=== PATIENT | male | born 1935 | race Caucasian/White ===

== ENCOUNTER 2017-10-02 15:52 | Observation (INO) ==
[2017-10-02] MEDS ORDERED: Ipratropium/Albuterol Neb 3 ML IH ONE ×2 (16:02→18:05)
[2017-10-02] MEDS ORDERED: Albuterol 2.5 MG/3 ML NEBULIZER IH ONE (16:02)
[2017-10-02] MEDS ORDERED: methylPREDNISolone 125 MG/2 ML VIAL IVP ONE (16:02)
--- NOTE | 2017-10-02 16:07 | Emergency Department Note ---
Disposition Clinical Impression: COPD exacerbation Pneumonia Qualifiers: Pneumonia type: due to unspecified organism Laterality: left Lung location: lower lobe of lung Qualified Code(s): J18.1 - Lobar pneumonia, unspecified organism Disposition: Admitted As Inpatient Condition: Good Referrals: Kings Moran MD [Primary Care Provider] - Forms: ED Satisfaction Letter Time of Disposition: 17:54 SOB HPI - General Chief Complaint: ED Shortness of Breath/Dyspnea Stated Complaint: SOB Time Seen by Provider: 10/02/17 16:00 Source: patient Mode of arrival: ambulatory Limitations: no limitations Nursing Notes Reviewed: Yes Vital Signs Reviewed: Yes - History of Present Illness 81-year-old white male has been sick with cough and congestion for approximately 2 weeks. He was seen by his primary care physician approximately 10 days ago. He was put on a Z-Mayur and steroids. He states he has continued to get worse instead of better. He has had fever for at least 3 days, he does not know how high it spin. He has had chills. His cough is productive purulent sputum. He has been wheezing and short of breath with exertion and rest. He normally wears 1/2 L of oxygen at home. He has a history of COPD. He denies chest pain. Pt Subjective Complaint: shortness of breath, cough Onset (ago): week(s) Context: recent illness (2) Severity: moderate Consistency/Duration: constant Improves with: oxygen, rest Worsens with: exertion, coughing Known history of: COPD Associated symptoms: Reports: fever Treatment prior to arrival: oxygen, bronchodilator, other (Steroids and azithromycin) Cough present: Yes Cough Description: Involuntary Cough Frequency: Intermittent Sputum production: Yes Sputum Amount: Moderate Sputum Color: Yellow - Related Data Home oxygen amount: other (1.5) Home Medications Medication Instructions Recorded Confirmed Furosemide [Lasix] 20 mg PO DAILY 05/19/15 10/02/17 GuaiFENesin ER [Mucinex] 600 mg PO BID PRN 05/19/15 10/02/17 Simvastatin [Zocor] 40 mg PO QPM 05/19/15 10/02/17 Albuterol Sulfate [Proair Hfa] 2 puff IH PRN PRN 09/29/16 10/02/17 Nitroglycerin [Nitrostat] 0.4 mg SL PRN PRN 09/29/16 10/02/17 Aspirin [Lo-Dose Aspirin EC] 81 mg PO DAILY 02/28/17 10/02/17 Esomeprazole Magnesium [Nexium] 40 mg PO DAILY 02/28/17 10/02/17 Fluticasone/Salmeterol [Advair 1 puff IH BID 02/28/17 10/02/17 500-50 Diskus] Rivaroxaban [Xarelto] 20 mg PO DAILY 02/28/17 10/02/17 Enalapril Maleate [Vasotec] 40 mg PO DAILY 05/22/17 10/02/17 Previous Rx's Medication Instructions Recorded Acetaminophen w/Cod 300-30 mg 1 each PO Q6HR #12 tablet 05/22/17 [Tylenol w/Codeine #3] Allergies Allergy/AdvReac Type Severity Reaction Status Date / Time naproxen Allergy Swelling Verified 02/28/17 18:53 of Lip/Tongue/Throat aclidinium AdvReac Dizziness Verified 02/28/17 18:53 [From Tudorza Pressair] amlodipine AdvReac Nausea Verified 02/28/17 18:53 fluoxetine AdvReac Hallucinati Verified 02/28/17 18:53 ng lorazepam [From Ativan] AdvReac Nausea Verified 02/28/17 18:53 All systems ED: reviewed and negative except as stated. Constitutional: Reports: fever, chills Eyes: Denies: eye discharge ENT ED: Denies: ear pain, throat pain Cardiovascular: Denies: chest pain Respiratory: Reports: cough, dyspnea, wheezes, sputum production Gastrointestinal: Denies: abdominal pain, nausea, vomiting, diarrhea Genitourinary: Denies: urgency, dysuria, frequency Neurological: Reports: headache. Denies: weakness, paresthesias Past Medical History - Past Medical History Medical history: Reports: atrial fibrillation, COPD, hypertension, myocardial infarction Surgical history: Reports: coronary bypass (CABG), other Psychiatric history: Reports: anxiety - Social History Smoking Status: Former smoker Smokeless Tobacco Status: No Alcohol use: Reports: none Drug use: Reports: none Physical Exam - General Limitations: no limitations General appearance: alert, in distress (Mildly dyspneic) - Head Head exam: atraumatic, normocephalic - Eye Eye exam: Present: PERRL, EOMI. Absent: scleral icterus, conjunctival injection - ENT ENT exam: normal oropharynx, mucous membranes moist, TM's normal bilaterally - Neck Neck exam: Present: normal inspection, full ROM, trachea midline. Absent: lymphadenopathy - Chest Chest inspection: Present: normal inspection, symmetric chest wall rise - Respiratory Respiratory exam: Present: respiratory distress (Mildly dyspneic), wheezes ( Moderate bilateral expiratory), prolonged expiratory phase. Absent: accessory muscle use - Cardiovascular Cardiovascular exam: Present: normal rhythm, tachycardia (108). Absent: systolic murmur, diastolic murmur, gallop - Abdominal Exam Abdominal exam: Present: soft, Non-Tender, other (Obese) - Extremities Exam Extremities exam: Present: normal inspection, full ROM, normal capillary refill. Absent: pedal edema, calf tenderness - Neurological Exam Neurological exam: Present: alert, oriented X3. Absent: motor sensory deficit - Psychiatric Psychiatric exam: Present: normal affect, normal mood - Skin Skin exam: Present: warm, dry, intact, normal color. Absent: cyanosis, diaphoresis Course - Reevaluation(s) Reevaluation #1: Clear pneumonia. Clinically is doing well here. He responded well to the nebulizers and Solu-Medrol. IV Rocephin and azithromycin were initiated. His lactic acid is not elevated. I discussed case with the hospitalist, Dr. Smith. He will admit to an observation bed. Time: 17:53 Vital Signs Temperature 101.5 F H 10/02/17 15:54 Pulse Rate 89 10/02/17 15:54 Respiratory Rate 26 10/02/17 15:54 Blood Pressure 142/76 10/02/17 15:54 O2 Sat by Pulse Oximetry 97 10/02/17 15:54 Temperature 100.1 F H 10/02/17 17:27 Pulse Rate 85 10/02/17 17:27 Respiratory Rate 18 10/02/17 17:27 Blood Pressure 124/60 10/02/17 17:27 O2 Sat by Pulse Oximetry 98 10/02/17 17:27 Oxygen Delivery Oxygen Delivery Nasal Cannula Shortness of Breath/Dyspnea - Differential Diagnosis Likely: acute exacerbation of chronic obstructive airways disease, congestive heart failure, pneumonia, pneumothorax, arrhythmia - Lab Data Lab results reviewed: Yes I reviewed the patient's lab results. Result diagrams: 10/02/17 16:00 10/02/17 16:00 Lab Results 10/02/17 10/02/17 10/02/17 Range/Units 16:00 16:00 16:00 WBC 12.6 H (4.3-11.1) K/mcL RBC 4.05 L (4.19-5.50) M/mcL Hgb 11.3 L (12.9-16.9) g/dL Hct 34.7 L (37.5-50.1) % MCV 85.7 (83.0-100.0) fL MCH 27.9 L (28.0-33.3) pg MCHC 32.6 (31.6-35.5) g/dL RDW 14.2 (11.5-14.5) % Plt Count 136 L (140-400) K/mcL MPV 13.4 H (9.4-12.4) fL Immature Gran % 0.6 (0-4) % Seg Neutrophils % 74.9 % Lymphocytes % 16.5 % Monocytes % 7.3 % Eosinophils % 0.5 % Basophils % 0.2 % Neutrophils # 9.4 H (1.6-8.9) K/mcL Lymphocytes # 2.1 (0.6-4.6) K/mcL Monocytes # 0.9 (0.0-1.3) K/mcL Eosinophils # 0.1 (0.0-0.6) K/mcL Basophils # 0.0 (0.0-0.2) K/mcL Sodium 139 (136-145) mEq/L Potassium 3.8 (3.5-4.5) mEq/L Chloride 105 (98-109) mEq/L Carbon Dioxide 25 (19-29) mEq/L BUN 27 H (8-26) mg/dL Creatinine 1.34 H (0.72-1.25) mg/dL Est GFR ( Amer) > 60 (> 60) Est GFR (Non-Af Amer) 51 L (> 60) BUN/Creatinine Ratio 20 (6-26) Glucose 125 H (70-99) mg/dL Calculated Osmolality 295 (280-300) Lactic Acid 1.0 (0.5-2.2) mmol/L Calcium 8.9 (8.6-10.8) mg/dL Total Bilirubin 0.9 (0.2-1.2) mg/dL AST 11 (5-34) Units/L ALT 14 (0-55) Units/L Alkaline Phosphatase 78 (38-126) Units/L Troponin I (0-0.03) ng/mL B-Natriuretic Peptide (0-100) pg/mL Serum Total Protein 6.3 (6.0-8.3) g/dL Albumin 3.2 L (3.5-5.0) g/dL Globulin 3.1 (2.4-3.5) g/dL Albumin/Globulin Ratio 1.0 L (1.1-2.2) 10/02/17 10/02/17 Range/Units 16:00 16:00 WBC (4.3-11.1) K/mcL RBC (4.19-5.50) M/mcL Hgb (12.9-16.9) g/dL Hct (37.5-50.1) % MCV (83.0-100.0) fL MCH (28.0-33.3) pg MCHC (31.6-35.5) g/dL RDW (11.5-14.5) % Plt Count (140-400) K/mcL MPV (9.4-12.4) fL Immature Gran % (0-4) % Seg Neutrophils % % Lymphocytes % % Monocytes % % Eosinophils % % Basophils % % Neutrophils # (1.6-8.9) K/mcL Lymphocytes # (0.6-4.6) K/mcL Monocytes # (0.0-1.3) K/mcL Eosinophils # (0.0-0.6) K/mcL Basophils # (0.0-0.2) K/mcL Sodium (136-145) mEq/L Potassium (3.5-4.5) mEq/L Chloride (98-109) mEq/L Carbon Dioxide (19-29) mEq/L BUN (8-26) mg/dL Creatinine (0.72-1.25) mg/dL Est GFR ( Amer) (> 60) Est GFR (Non-Af Amer) (> 60) BUN/Creatinine Ratio (6-26) Glucose (70-99) mg/dL Calculated Osmolality (280-300) Lactic Acid (0.5-2.2) mmol/L Calcium (8.6-10.8) mg/dL Total Bilirubin (0.2-1.2) mg/dL AST (5-34) Units/L ALT (0-55) Units/L Alkaline Phosphatase (38-126) Units/L Troponin I 0.02 (0-0.03) ng/mL B-Natriuretic Peptide 56 (0-100) pg/mL Serum Total Protein (6.0-8.3) g/dL Albumin (3.5-5.0) g/dL Globulin (2.4-3.5) g/dL Albumin/Globulin Ratio (1.1-2.2) - Radiology Data Radiology results reviewed: Yes I reviewed the patient's radiology results. Impressions Chest X-Ray 10/02/17 16:02 IMPRESSION: Interval development of left basilar airspace disease which could represent atelectasis or pneumonia. Mild vascular congestion. D/ / Luis Enrique Gonzalez MD / Luis Enrique Gonzalez MD Interpreting Provider: Luis Enrique Gonzalez MD - EKG Data EKG attestation: Yes I reviewed and interpreted this EKG. EKG results narrative: Junctional rhythm, rate of 87, nonspecific ST-T changes. Rhythm strip shows a junctional rhythm with a rate of 87, [place] interval 137 ms, QRS 98 ms with no other ectopy is interpreted by me. This is compared to a tracing dated 09/29/16 , not significantly change other than the short [place] interval and/or junctional rhythm. ST-T wave changes are unchanged.
[2017-10-02 16:22] LABS: Basophils % 0.2 %; Eosinophils # 0.1 K/mcL (0.0-0.6); Eosinophils % 0.5 %; Hematocrit 34.7 % (37.5-50.1); Hemoglobin 11.3 g/dL (12.9-16.9); Immature Granulocytes % 0.6 % (0-4); Lymphocytes # 2.1 K/mcL (0.6-4.6); Lymphocytes % 16.5 %; Mean Corpuscular HGB Conc 32.6 g/dL (31.6-35.5); Mean Corpuscular Hemoglobin 27.9 pg (28.0-33.3); Mean Corpuscular Volume 85.7 fL (83.0-100.0); Mean Platelet Volume 13.4 fL (9.4-12.4); Monocytes # 0.9 K/mcL (0.0-1.3); Monocytes % 7.3 %; Platelet Count 136 K/mcL (140-400); Red Blood Count 4.05 M/mcL (4.19-5.50); Red Cell Distribution Width 14.2 % (11.5-14.5); Segmented Neutrophils % 74.9 %
[2017-10-02 16:23] LABS: Neutrophils # 9.4 K/mcL (1.6-8.9)
[2017-10-02 16:41] LABS: Alanine Aminotransferase 14 Units/L (0-55); Albumin 3.2 g/dL (3.5-5.0); Alkaline Phosphatase 78 Units/L (38-126); Aspartate Amino Transferase 11 Units/L (5-34); BUN/Creatinine Ratio 20 (6-26); Bilirubin,Total 0.9 mg/dL (0.2-1.2); Blood Urea Nitrogen 27 mg/dL (8-26); Calcium 8.9 mg/dL (8.6-10.8); Carbon Dioxide 25 mEq/L (19-29); Chloride 105 mEq/L (98-109); Globulin 3.1 g/dL (2.4-3.5); Glucose 125 mg/dL (70-99); Osmolality,Calculated 295 (280-300); Potassium 3.8 mEq/L (3.5-4.5); Sodium 139 mEq/L (136-145); Total Protein 6.3 g/dL (6.0-8.3); eGFR For African Americans > 60 (> 60); eGFR For Non-African Americans 51 (> 60)
[2017-10-02] MEDS ORDERED: Azithromycin 500 MG in D5% in Water 250 ML IVPB ONE (16:58)
[2017-10-02] MEDS ORDERED: Acetaminophen 325 MG TABLET PO PRN (18:05)
[2017-10-02] MEDS ORDERED: Naloxone 0.4 MG/ML INJ IVP PRN (18:05)
[2017-10-02] MEDS ORDERED: Nitroglycerin 0.4 MG TAB.SUBL SL PRN ×2 (18:05→18:59)
[2017-10-02] MEDS ORDERED: *HR* Acetaminophen w/Cod 300-30 mg 1 TAB TABLET PO SCH (18:05)
[2017-10-02] MEDS: methylPREDNISolone 125 MG/2 ML VIAL IVP SCH (19:03)
[2017-10-02] MEDS ORDERED: *HR* Acetaminophen w/Cod 300-30 mg 1 TAB TABLET PO PRN (19:27)
[2017-10-02] MEDS: Budesonide/Formoterol 160/4.5 MDI IH SCH (21:27)
[2017-10-03] MEDS: methylPREDNISolone 125 MG/2 ML VIAL IVP SCH ×2 (02:34→09:14)
[2017-10-03] MEDS: Budesonide/Formoterol 160/4.5 MDI IH SCH ×2 (08:50→20:58)
[2017-10-03] MEDS ORDERED: Lisinopril 20 MG TABLET PO SCH (09:00)
[2017-10-03] MEDS: Furosemide 20 MG TABLET PO SCH (09:16)
[2017-10-03] MEDS: *HR* Rivaroxaban 10 MG TABLET PO SCH (09:16)
[2017-10-03] MEDS: Aspirin Enteric Coated 81 MG Tablet PO SCH (09:16)
--- NOTE | 2017-10-03 12:07 | Internal Med History&Physical ---
Date of Encounter: 10/03/17 Time of Encounter: 11:35 Assessment and Plan (1) Community acquired pneumonia Current visit: No Status: Acute He has been started on Rocephin and Zithromax. We will continue these and add lactobacillus. Recheck labs in a.m. Qualifiers: Laterality: left Lung location: lower lobe of lung Qualified Code(s): J18.1 - Lobar pneumonia, unspecified organism (2) Restrictive lung disease Current visit: Yes Status: Acute Continue oxygen 24/7 for hypoxemia. (3) Anemia Current visit: Yes Status: Acute We will order anemia testing in a.m. Qualifiers: Anemia type: unspecified type Qualified Code(s): D64.9 - Anemia, unspecified (4) Hypertension Current visit: No Status: Chronic Continue enalapril/lisinopril and monitor blood pressure. Qualifiers: Hypertension type: essential hypertension Qualified Code(s): I10 - Essential (primary) hypertension Internal Medicine - H&P: HPI Chief complaint: Dyspnea and cough Admitted From: Emergency Dept Plans for Post Hospital Care: Home History of present illness: Mr. Chavez is a 81 year old male who came to emergency room complaining of increased dyspnea with cough productive of yellow and green sputum onset approximately 10 days previously. He had seen his PCP Dr. Moran and received a Z-Mayur and steroids. He did not feel improved after completing the prescription. He was evaluated in emergency room and found to have evidence of left lower lobe pneumonia on chest x-ray. He was admitted to [facility] floor for ongoing care needs. He was hospitalized at [facility] September 2016 with possible left lower lobe pneumonia. His respiratory history is significant for having smoked from age 16- 46 up to 1 pack per day. He had PFTs 10/20/2015 which showed FVC 59% predicted , FEV1/FVC 66%, MVV 45%, and DLCO corrected 72% . There was minimal change postbronchodilator. The RV was elevated at 142% predicted. He has hypoxemia and wears oxygen 24/7. Past Med Surg Social Fam HX - Past Medical History Medical history: atrial fibrillation, COPD, hypertension, myocardial infarction Psychiatric history: anxiety - Past Surgical History Surgical History: coronary bypass (CABG), other - Social History Smoking Status: Former smoker Smokeless Tobacco Status: No Alcohol use: none Drug use: none - Family History Father Adopted: No Hx Family Cardiac Disorders: Yes (heart attack) Internal Medicine - H&P: Meds Furosemide [Lasix] 20 mg PO DAILY 05/19/15 [History] GuaiFENesin ER [Mucinex] 600 mg PO BID PRN 05/19/15 [History] Simvastatin [Zocor] 40 mg PO QPM 05/19/15 [History] Albuterol Sulfate [Proair Hfa] 2 puff IH PRN PRN 09/29/16 [History] Nitroglycerin [Nitrostat] 0.4 mg SL PRN PRN 09/29/16 [History] Aspirin [Lo-Dose Aspirin EC] 81 mg PO DAILY 02/28/17 [History] Esomeprazole Magnesium [Nexium] 40 mg PO DAILY 02/28/17 [History] Fluticasone/Salmeterol [Advair 500-50 Diskus] 1 puff IH BID 02/28/17 [History] Rivaroxaban [Xarelto] 20 mg PO DAILY 02/28/17 [History] Acetaminophen w/Cod 300-30 mg [Tylenol w/Codeine #3] 1 each PO Q6HR #12 tablet 05/22/17 [Rx] Enalapril Maleate [Vasotec] 40 mg PO DAILY 05/22/17 [History] 3 Allergy/AdvReac Type Severity Reaction Status Date / Time naproxen Allergy Swelling Verified 02/28/17 18:53 of Lip/Tongue/Throat aclidinium AdvReac Dizziness Verified 02/28/17 18:53 [From Tudorza Pressair] amlodipine AdvReac Nausea Verified 02/28/17 18:53 fluoxetine AdvReac Hallucinati Verified 02/28/17 18:53 ng lorazepam [From Ativan] AdvReac Nausea Verified 02/28/17 18:53 All Systems PM: A 10-system review of systems was performed and is negative for pertinent findings except as documented above in the HPI. Review of systems: Review of systems from his September 2016 [facility] hospitalization were reviewed and revised as below. General: His weight has increased from 95.254 kg at the May 2015 hospitalization to 113.398 kg on admission now Cardiovascular: He has hypertension and known ASHD status post 3 vessel CABG September 2006 in [place]. He had a heart cath approximately December 2008 at [place] with results unremarkable. He thinks he had another stress test approximately 2011 without further intervention recommended. He does not have known heart failure, DVT, or pulmonary embolus. An echocardiogram 09/25/2015 showed LVEF 60%, E/A ratio of 0.6, and no significant valvular abnormality. The interventricular septum and posterior wall thickness measurements were elevated at 1.10 cm each. 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 Respiratory: As per history of present illness GI: He denies trouble with his liver gallbladder or exocrine pancreas. He does have GERD. : no history of hematuria, dysuria, kidney stones, or BPH. He denies chronic kidney disease Neurologic: No history of large distribution strokes or seizures. Endocrine: He has no known diabetes or thyroid disease but does have hyperlipidemia. Hematology/oncology: No history of internal malignancies or blood disorders. He has had anemia in the past but that has resolved. Psychiatric: He has depression but no significant anxiety or other mental health issues. [place] skeletal: he has DJD but no known gout or osteoporosis. - Constitutional Vitals: Temp Pulse Resp BP Pulse Ox 97.3 F L 76 16 157/76 95 10/03/17 06:32 10/03/17 06:32 10/03/17 08:51 10/03/17 06:32 10/03/17 08:51 Exam: Gen.: He is a well-developed overweight male sitting on the side of bed who appears in mild respiratory distress HEENT: Head is atraumatic and normocephalic. Eyes: EOMI. There is no scleral icterus. Mouth: Mucosa is moist. Neck: Supple and nontender. There is no thyromegaly or adenopathy noted. Heart: Regular without murmurs gallops or ectopics Lungs: He has diminished breath sounds diffusely. No crackles or wheezing are heard Back: He has mild discomfort over percussing the right lower lateral flank Abdomen: He has a midline ventral hernia on Valsalva. No masses or guarding are noted. Abdomen is soft and nontender. Extremities: There is no cyanosis edema or clubbing noted. Dorsalis pedis and posttibial pulses are 1-2 over 2 bilaterally. Neurologic: Mental status: He is talkative and a good historian. Cranial nerves : Smile is symmetric. Forehead wrinkles bilaterally. Tongue protrudes midline. EOMI. Motor: There is no pronator drift. Cerebellar: Finger to nose is intact bilaterally. Skin: Warm and dry Internal Med - H&P Results - Labs CBC & Chem 7: 10/02/17 16:00 10/02/17 16:00 - VTE Reasons for not Prescribing Prophylaxis: Not indicated-Anticoagulated or INR therapeutic
--- NOTE | 2017-10-03 16:28 | Electrocardiograph Report ---
[place] [id number] Test Date: 2017-10-02 Pat Name: Nitin Chavez Department: [id number] Room: [facility] Gender: M Vp Customer Service: [id number] 1935 Requested By: Demetrius Carroll Order Number: [id number] Reading MD: Petey Kline DO Measurements Intervals [place] Rate: 87 P: -64 MO: 137 QRS: 38 QRSD: 98 T: 35 QT: 335 QTc: 380 Interpretive Statements SINUS RHYTHM NONSPECIFIC ST & T-WAVE ABNORMALITY Electronically Signed On 10-03-2017 16:27:21 EST by Petey Kline DO
[2017-10-03] MEDS ORDERED: Azithromycin 500 MG in D5% in Water 250 ML IVPB SCH ×2 (17:00→18:00)
[2017-10-03] MEDS: Lactobacillus 1 EACH CAP.SPRINK PO SCH (20:50)
[2017-10-04 06:02] LABS: Basophils % 0.1 %; Hematocrit 32.4 % (37.5-50.1); Hemoglobin 10.5 g/dL (12.9-16.9); Immature Granulocytes % 0.8 % (0-4); Lymphocytes # 1.7 K/mcL (0.6-4.6); Lymphocytes % 9.5 %; Mean Corpuscular HGB Conc 32.4 g/dL (31.6-35.5); Mean Corpuscular Hemoglobin 27.4 pg (28.0-33.3); Mean Corpuscular Volume 84.6 fL (83.0-100.0); Mean Platelet Volume 14.4 fL (9.4-12.4); Monocytes # 0.7 K/mcL (0.0-1.3); Monocytes % 3.8 %; Platelet Count 143 K/mcL (140-400); Red Blood Count 3.83 M/mcL (4.19-5.50); Red Cell Distribution Width 13.9 % (11.5-14.5); Segmented Neutrophils % 85.8 %
[2017-10-04 06:07] LABS: Neutrophils # 15.3 K/mcL (1.6-8.9)
[2017-10-04 06:20] LABS: BUN/Creatinine Ratio 30 (6-26); Blood Urea Nitrogen 35 mg/dL (8-26); Carbon Dioxide 24 mEq/L (19-29); Chloride 107 mEq/L (98-109); Glucose 155 mg/dL (70-99); Osmolality,Calculated 297 (280-300); Potassium 4.4 mEq/L (3.5-4.5); Sodium 138 mEq/L (136-145); eGFR For African Americans > 60 (> 60); eGFR For Non-African Americans > 60 (> 60)
[2017-10-04] MEDS: Lactobacillus 1 EACH CAP.SPRINK PO SCH (09:02)
[2017-10-04] MEDS: Aspirin Enteric Coated 81 MG Tablet PO SCH (09:02)
[2017-10-04] MEDS: *HR* Rivaroxaban 10 MG TABLET PO SCH (09:02)
[2017-10-04] MEDS: Furosemide 20 MG TABLET PO SCH (09:02)
[2017-10-04] MEDS: Budesonide/Formoterol 160/4.5 MDI IH SCH (09:34)
[2017-10-04 09:41] LABS: % Iron Saturation 13 % (20-55); Ferritin 67 ng/ml (20-250); Iron 33 mcg/dL (65-175); Transferrin 183 mg/dL (203-362)
[2017-10-04 09:58] VITALS: BP 134/72
--- NOTE | 2017-10-04 10:01 | Discharge Summary ---
Date of Encounter: 10/04/17 Time of Encounter: 09:50 - Discharge Diagnosis (1) Community acquired pneumonia Priority: Primary Status: Acute Qualifiers: Laterality: left Lung location: lower lobe of lung Qualified Code(s): J18.1 - Lobar pneumonia, unspecified organism (2) Restrictive lung disease Priority: Secondary Status: Acute (3) Anemia Priority: Secondary Status: Acute Qualifiers: Anemia type: unspecified type Qualified Code(s): D64.9 - Anemia, unspecified (4) Hypertension Priority: Secondary Status: Chronic Qualifiers: Hypertension type: essential hypertension Qualified Code(s): I10 - Essential (primary) hypertension - Discharge Medications Prescriptions: Cefuroxime PO [Ceftin] 500 mg PO Q12HR #8 tablet Ascorbic Acid [Vitamin C] 500 mg PO DAILY #30 tablet Azithromycin [Zithromax] 250 mg PO DAILY #4 tablet Ferrous Sulfate 325 mg PO DAILY #30 tablet Lactobacillus [Culturelle] 1 each PO BID #8 cap.sprink Home Medications: GuaiFENesin ER [Mucinex] 600 mg PO BID PRN 05/19/15 [History] Simvastatin [Zocor] 40 mg PO QPM 05/19/15 [History] Albuterol Sulfate [Proair Hfa] 2 puff IH PRN PRN 09/29/16 [History] Nitroglycerin [Nitrostat] 0.4 mg SL PRN PRN 09/29/16 [History] Aspirin [Lo-Dose Aspirin EC] 81 mg PO DAILY 02/28/17 [History] Esomeprazole Magnesium [Nexium] 40 mg PO DAILY 02/28/17 [History] Fluticasone/Salmeterol [Advair 500-50 Diskus] 1 puff IH BID 02/28/17 [History] Rivaroxaban [Xarelto] 20 mg PO DAILY 02/28/17 [History] Acetaminophen w/Cod 300-30 mg [Tylenol w/Codeine #3] 1 each PO Q6HR #12 tablet 05/22/17 [Rx] Enalapril Maleate [Vasotec] 40 mg PO DAILY 05/22/17 [History] Ascorbic Acid [Vitamin C] 500 mg PO DAILY #30 tablet 10/04/17 [Rx] Azithromycin [Zithromax] 250 mg PO DAILY #4 tablet 10/04/17 [Rx] Cefuroxime PO [Ceftin] 500 mg PO Q12HR #8 tablet 10/04/17 [Rx] Ferrous Sulfate 325 mg PO DAILY #30 tablet 10/04/17 [Rx] Furosemide [Lasix] 20 mg PO Q48H tablet 10/04/17 [Rx] Lactobacillus [Culturelle] 1 each PO BID #8 cap.sprink 10/04/17 [Rx] Allergies/Adverse Reactions: 3 Allergy/AdvReac Type Severity Reaction Status Date / Time naproxen Allergy Swelling Verified 02/28/17 18:53 of Lip/Tongue/Throat aclidinium AdvReac Dizziness Verified 02/28/17 18:53 [From Tudorza Pressair] amlodipine AdvReac Nausea Verified 02/28/17 18:53 fluoxetine AdvReac Hallucinati Verified 02/28/17 18:53 ng lorazepam [From Ativan] AdvReac Nausea Verified 02/28/17 18:53 Date of admission: 10/02/17 18:03 Primary care physician: Kings Moran MD - Patient Status Disposition: Home, Self-Care Condition: Good Functional capacity at discharge: uses cane/walker Overall status at discharge: patient is progressing back to baseline - Discharge Instructions Follow Up With: Kings Moran MD [Primary Care Provider] - 1 week - Diet and Activity Activity: resume usual activities as tolerated, wear oxygen at all times Diet: advance to your usual diet Hospital course: Mr. Chavez is a 81 year old male who came to emergency room complaining of increased dyspnea with cough productive of yellow and green sputum onset approximately 10 days previously. He had seen his PCP Dr. Moran and received a Z-Mayur and steroids. He did not feel improved after completing the prescription. He was evaluated in emergency room and found to have evidence of left lower lobe pneumonia on chest x-ray. He was admitted to [facility] floor for ongoing care needs. Initial orders were written by the emergency room physician. I saw him on October 03 and performed the history and physical. He was started on Rocephin and Zithromax through emergency room. These were continued and I added lactobacillus. He had good clinical response and remained afebrile the last 24 hours of hospitalization. WBC jennifer to 17.8 but I felt this was possibly due in part to IV Solu-Medrol which was given initially. His PCP can monitor his labs as needed. He will continue with antibiotic and probiotic for 4 additional days after discharge. Anemia testing showed iron 33, transferrin saturation 13%, transferrin 183, and ferritin 67. B12 and folate levels are pending time of discharge. I will start him on ferrous sulfate with vitamin C. His PCP can monitor his response and review the pending B12 and folate levels when they are available. His creatinine decreased to 1.16 with administration of IV fluids. I will decrease his Lasix to 20 mg every other day. On October 04 he felt stable for discharge home. He will follow with his PCP Dr. Kings Moran within 1 week. Will continue oxygen 08/05 as at home. - Time Spent with Patient Total time spent providing and/or coordinating discharge services: - Constitutional Vitals: Temp Pulse Resp BP Pulse Ox 97.3 F L 80 18 156/72 95 10/04/17 05:24 10/04/17 05:24 10/04/17 05:24 10/04/17 05:24 10/04/17 05:24 - VTE Reasons for not Prescribing Prophylaxis: Not indicated-Anticoagulated or INR therapeutic
[2017-10-04 10:05] LABS: Folate 13.2 ng/mL (3.0-16.0)
== END 2017-10-04 11:01 | disposition home or self-care (01) ==
LOC: EMEROOPIK 15:52 → INPPIK 15:52
PROVIDERS: ADMIT Emergency Medicine; ATTEND Internal Medicine

== ENCOUNTER 2017-11-05 15:29 | Observation (INO) ==
--- NOTE | 2017-11-05 16:07 | Emergency Department Note ---
Disposition Clinical Impression: Facial cellulitis Disposition: Admitted As Inpatient Condition: Good Time of Disposition: 18:50 ([facility]) Neck Injury/Pain HPI - General Chief Complaint: ED Neck Pain/Injury Stated Complaint: pain in neck from cellulitis Time Seen by Provider: 11/05/17 15:35 Source: patient Mode of arrival: ambulatory Limitations: no limitations Nursing Notes Reviewed: Yes Vital Signs Reviewed: Yes - History of Present Illness HPI Narrative: Patient seen Monday was diagnosed with cellulitis of the face but there was no redness justice submandibular swelling or brings him in today stating that his whole left side of his face is swollen he is having no difficulty swallowing or difficulty breathing but states his face swollen denies any blurred vision double vision loss vision he notices up underneath his maxillary sinus region up around his ear and down into the neck denies any chest pain chest pressure palpitations he has normal shortness of breath secondary to COPD he denies any abdominal pain or discomfort denies diarrhea melena hematochezia or numbness tingling or weakness Pt Subjective Complaint: neck pain Onset (ago): day(s) Place: home Radiation: left lateral, head Pain Severity: moderate Pain Scale: 3 Quality: aching Duration: constant, gradually worsening Improves with: none Worsens with: movement of neck Context: unknown Associated symptoms: Reports: fever, swollen glands. Denies: headache, numbness , tingling, weakness, vertigo, difficulty walking, difficulty swallowing, nausea , vomiting Treatments prior to arrival: other (prescription ab's) - Related Data Home Medications Medication Instructions Recorded Confirmed GuaiFENesin ER [Mucinex] 600 mg PO BID PRN 05/19/15 11/05/17 Simvastatin [Zocor] 40 mg PO QPM 05/19/15 11/05/17 Albuterol Sulfate [Proair Hfa] 2 puff IH PRN PRN 09/29/16 11/05/17 Nitroglycerin [Nitrostat] 0.4 mg SL PRN PRN 09/29/16 11/05/17 Aspirin [Lo-Dose Aspirin EC] 81 mg PO DAILY 02/28/17 11/05/17 Esomeprazole Magnesium [Nexium] 40 mg PO DAILY 02/28/17 11/05/17 Fluticasone/Salmeterol [Advair 1 puff IH BID 02/28/17 11/05/17 500-50 Diskus] Rivaroxaban [Xarelto] 20 mg PO DAILY 02/28/17 11/05/17 Enalapril Maleate [Vasotec] 40 mg PO DAILY 05/22/17 11/05/17 Acetaminophen [Tylenol] 500 mg PO Q6HR 11/05/17 11/05/17 Previous Rx's Medication Instructions Recorded Ascorbic Acid [Vitamin C] 500 mg PO DAILY #30 tablet 10/04/17 Cefuroxime PO [Ceftin] 500 mg PO Q12HR #8 tablet 10/04/17 Ferrous Sulfate 325 mg PO DAILY #30 tablet 10/04/17 Furosemide [Lasix] 20 mg PO Q48H tablet 10/04/17 Lactobacillus [Culturelle] 1 each PO BID #8 cap.sprink 10/04/17 Clindamycin HCl [Cleocin HCl] 300 mg PO TID #21 capsule 11/03/17 Allergies Allergy/AdvReac Type Severity Reaction Status Date / Time naproxen Allergy Swelling Verified 11/03/17 19:20 of Lip/Tongue/Throat aclidinium AdvReac Dizziness Verified 11/03/17 19:20 [From Tudorza Pressair] amlodipine AdvReac Nausea Verified 11/03/17 19:20 fluoxetine AdvReac Hallucinati Verified 11/03/17 19:20 ng lorazepam [From Ativan] AdvReac Nausea Verified 11/03/17 19:20 All systems ED: reviewed and negative except as stated. Review of Systems: As Per HPI Constitutional: Reports: fever, weakness. Denies: chills Eyes: Denies: eye pain, eye discharge, vision change ENT ED: Reports: other (facial swelling). Denies: ear pain, throat pain, congestion, dysphagia Cardiovascular: Denies: chest pain Respiratory: Denies: cough, dyspnea Gastrointestinal: Denies: abdominal pain, nausea, vomiting Genitourinary: Denies: urgency, dysuria, frequency Musculoskeletal: Denies: back pain, neck pain Integumentary: Denies: rash, abrasion, lesions Neurological: Denies: headache, weakness Psychiatric: Denies: anxiety Endocrine: Denies: fatigue Hematological/Lymphatic: Denies: easy bleeding Allergic/Immunologic: Denies: facial swelling Past Medical History - Past Medical History Attestation: Yes The following information was validated with the patient. Source: patient, old records reviewed, nursing notes reviewed Medical history: Reports: non-contributory Surgical history: Reports: coronary bypass (CABG), other Psychiatric history: Reports: anxiety - Social History Smoking Status: Former smoker Smokeless Tobacco Status: No Alcohol use: Reports: none Drug use: Reports: none Physical Exam - General Limitations: no limitations General appearance: alert, in no apparent distress - Head Head exam: normocephalic, normal inspection - Expanded Head Exam 1 - trace swelling - Eye Eye exam: Present: normal appearance, PERRL, EOMI - ENT ENT exam: normal exam, normal oropharynx, mucous membranes moist, TM's normal bilaterally, normal external ear exam - Neck Neck exam: Present: normal inspection, full ROM, trachea midline, tenderness, lymphadenopathy (left submandibuar only) - Chest Chest inspection: Present: normal inspection, symmetric chest wall rise - Respiratory Respiratory exam: Present: normal lung sounds bilaterally, wheezes - Cardiovascular Cardiovascular exam: Present: regular rate, normal rhythm, normal heart sounds - Abdominal Exam Abdominal exam: Present: soft, Non-Tender, normal bowel sounds - Extremities Exam Extremities exam: Present: normal inspection, full ROM, normal capillary refill. Absent: tenderness, pedal edema, joint swelling, calf tenderness - Expanded Lower Extremity Exam Gait: observed and normal - Back Exam Back exam: Present: normal inspection, full ROM. Absent: muscle spasm - Neurological Exam Neurological exam: Present: alert, oriented X3, CN II-XII intact - Psychiatric Psychiatric exam: Present: normal affect, normal mood - Skin Skin exam: Present: warm, dry, intact, normal color Course Course Narrative: 81-year-old male who presents to emergency room is having some left-sided jaw pain swelling patient was seen and evaluated CT scan was done as well as of the neck and face region he was given IV vancomycin clindamycin admitted to [facility] for additional IV antibiotics due to the fact it is involving the face and neck region if improved will discharge tomorrow admitted to the services of Dr. Smith family in agreement Vital Signs Temperature 97.9 F 11/05/17 15:31 Pulse Rate 82 11/05/17 15:31 Respiratory Rate 44 11/05/17 15:31 Blood Pressure 164/73 11/05/17 15:31 O2 Sat by Pulse Oximetry 95 11/05/17 15:31 Temperature 97.9 F 11/05/17 15:31 Pulse Rate 65 11/05/17 18:14 Respiratory Rate 18 11/05/17 18:14 Blood Pressure 127/73 11/05/17 18:14 O2 Sat by Pulse Oximetry 96 11/05/17 18:14 Oxygen Delivery Oxygen Delivery Room Air Neck Pain - MDM Narrative Medical decision making narrative: facial l swelling - Medical Records Medical records reviewed: Yes I reviewed the patient's medical records. - Lab Data Lab results reviewed: Yes I reviewed the patient's lab results. Result diagrams: 11/05/17 16:27 11/05/17 16:27 Lab Results 11/05/17 11/05/17 11/05/17 Range/Units 16:27 16:27 16:27 WBC 7.9 (4.3-11.1) K/mcL RBC 3.39 L (4.19-5.50) M/mcL Hgb 9.2 L (12.9-16.9) g/dL Hct 28.7 L (37.5-50.1) % MCV 84.7 (83.0-100.0) fL MCH 27.1 L (28.0-33.3) pg MCHC 32.1 (31.6-35.5) g/dL RDW 14.9 H (11.5-14.5) % Plt Count 148 (140-400) K/mcL MPV 13.6 H (9.4-12.4) fL Immature Gran % 0.4 (0-4) % Seg Neutrophils % 72.1 % Lymphocytes % 18.9 % Monocytes % 7.5 % Eosinophils % 0.8 % Basophils % 0.3 % Neutrophils # 5.7 (1.6-8.9) K/mcL Lymphocytes # 1.5 (0.6-4.6) K/mcL Monocytes # 0.6 (0.0-1.3) K/mcL Eosinophils # 0.1 (0.0-0.6) K/mcL Basophils # 0.0 (0.0-0.2) K/mcL PT (9.4-12.1) Seconds INR APTT 40.8 H (26.0-36.0) Seconds Sodium 137 (136-145) mEq/L Potassium 4.2 (3.5-5.1) mEq/L Chloride 105 (98-107) mEq/L Carbon Dioxide 28 (23-29) mEq/L BUN 19 (8-23) mg/dL Creatinine 1.04 (0.70-1.30) mg/dL Est GFR ( Amer) > 60 (> 60) Est GFR (Non-Af Amer) > 60 (> 60) BUN/Creatinine Ratio 18 (6-26) Glucose 108 H (70-105) mg/dL Calculated Osmolality 287 (280-300) Calcium 8.8 (8.6-10.3) mg/dL 11/05/17 Range/Units 16:27 WBC (4.3-11.1) K/mcL RBC (4.19-5.50) M/mcL Hgb (12.9-16.9) g/dL Hct (37.5-50.1) % MCV (83.0-100.0) fL MCH (28.0-33.3) pg MCHC (31.6-35.5) g/dL RDW (11.5-14.5) % Plt Count (140-400) K/mcL MPV (9.4-12.4) fL Immature Gran % (0-4) % Seg Neutrophils % % Lymphocytes % % Monocytes % % Eosinophils % % Basophils % % Neutrophils # (1.6-8.9) K/mcL Lymphocytes # (0.6-4.6) K/mcL Monocytes # (0.0-1.3) K/mcL Eosinophils # (0.0-0.6) K/mcL Basophils # (0.0-0.2) K/mcL PT 25.7 H (9.4-12.1) Seconds INR 2.3 APTT (26.0-36.0) Seconds Sodium (136-145) mEq/L Potassium (3.5-5.1) mEq/L Chloride (98-107) mEq/L Carbon Dioxide (23-29) mEq/L BUN (8-23) mg/dL Creatinine (0.70-1.30) mg/dL Est GFR ( Amer) (> 60) Est GFR (Non-Af Amer) (> 60) BUN/Creatinine Ratio (6-26) Glucose (70-105) mg/dL Calculated Osmolality (280-300) Calcium (8.6-10.3) mg/dL - Radiology Data Radiology results reviewed: Yes I reviewed the patient's radiology results. ITS Impressions Face CT 11/05/17 16:07 IMPRESSION: 1. Mild left inferior face and left submandibular soft tissue induration may represent mild cellulitis. 2. Remainder of the soft tissues of the neck are unremarkable. D/ / 11/05/2017 18:12:51 Cleve Tenorio MD / elaine Interpreting Provider: Cleve Tenorio MD Soft Tissue Neck CT 11/05/17 16:07 IMPRESSION: 1. Mild left inferior face and left submandibular soft tissue induration may represent mild cellulitis. 2. Remainder of the soft tissues of the neck are unremarkable. D/ / 11/05/2017 18:12:51 Cleve Tenorio MD / elaine Interpreting Provider: Cleve Tenorio MD Critical Care Time Critical Care Time: No
[2017-11-05 16:35] LABS: Basophils % 0.3 %; Eosinophils # 0.1 K/mcL (0.0-0.6); Eosinophils % 0.8 %; Hematocrit 28.7 % (37.5-50.1); Hemoglobin 9.2 g/dL (12.9-16.9); Immature Granulocytes % 0.4 % (0-4); Lymphocytes # 1.5 K/mcL (0.6-4.6); Lymphocytes % 18.9 %; Mean Corpuscular HGB Conc 32.1 g/dL (31.6-35.5); Mean Corpuscular Hemoglobin 27.1 pg (28.0-33.3); Mean Corpuscular Volume 84.7 fL (83.0-100.0); Mean Platelet Volume 13.6 fL (9.4-12.4); Monocytes # 0.6 K/mcL (0.0-1.3); Monocytes % 7.5 %; Neutrophils # 5.7 K/mcL (1.6-8.9); Platelet Count 148 K/mcL (140-400); Red Blood Count 3.39 M/mcL (4.19-5.50); Red Cell Distribution Width 14.9 % (11.5-14.5); Segmented Neutrophils % 72.1 %
[2017-11-05 16:41] LABS: INR 2.3; Prothrombin Time 25.7 Seconds (9.4-12.1)
[2017-11-05 16:48] LABS: BUN/Creatinine Ratio 18 (6-26); Blood Urea Nitrogen 19 mg/dL (8-23); Calcium 8.8 mg/dL (8.6-10.3); Carbon Dioxide 28 mEq/L (23-29); Chloride 105 mEq/L (98-107); Glucose 108 mg/dL (70-105); Osmolality,Calculated 287 (280-300); Potassium 4.2 mEq/L (3.5-5.1); Sodium 137 mEq/L (136-145); eGFR For African Americans > 60 (> 60); eGFR For Non-African Americans > 60 (> 60)
[2017-11-05] MEDS ORDERED: Clindamycin 600 MG/50 ML 600 MG/50 ML IV.SOLN IVPB STA (18:39)
[2017-11-05] MEDS ORDERED: cefTRIAXone 1,000 MG in Water for inj. (sterile) 10 ML IVP STA (18:39)
[2017-11-05] MEDS ORDERED: Nitroglycerin 0.4 MG TAB.SUBL SL PRN (20:08)
[2017-11-05] MEDS ORDERED: Ibuprofen 400 MG TABLET PO PRN (20:08)
[2017-11-05] MEDS ORDERED: Dextrose Gel 15 GM PO PRN ×2 (20:08)
[2017-11-05] MEDS ORDERED: Naloxone 0.4 MG/ML INJ IVP PRN (20:08)
[2017-11-05] MEDS ORDERED: D5% in Water 1,000 ML IVC PRN (20:08)
[2017-11-05] MEDS ORDERED: Furosemide 20 MG TABLET PO SCH (20:08)
[2017-11-05] MEDS ORDERED: *HR* Dextrose 50 % in Water (Syg) 50 ML SYRINGE IVP PRN (20:08)
[2017-11-05] MEDS: Budesonide/Formoterol 160/4.5 MDI IH SCH (21:36)
[2017-11-06 05:59] LABS: INR 1.5; Prothrombin Time 16.5 Seconds (9.4-12.1)
[2017-11-06 06:02] LABS: Activated Partial Thrombo Time 32.4 Seconds (26.0-36.0)
[2017-11-06 06:10] LABS: Basophils % 0.4 %; Eosinophils # 0.1 K/mcL (0.0-0.6); Hematocrit 27.6 % (37.5-50.1); Hemoglobin 8.9 g/dL (12.9-16.9); Immature Granulocytes % 0.5 % (0-4); Lymphocytes # 1.3 K/mcL (0.6-4.6); Mean Corpuscular HGB Conc 32.2 g/dL (31.6-35.5); Mean Corpuscular Hemoglobin 27.5 pg (28.0-33.3); Mean Corpuscular Volume 85.2 fL (83.0-100.0); Monocytes # 0.5 K/mcL (0.0-1.3); Monocytes % 7.3 %; Neutrophils # 5.3 K/mcL (1.6-8.9); Platelet Count 142 K/mcL (140-400); Red Blood Count 3.24 M/mcL (4.19-5.50); Red Cell Distribution Width 14.8 % (11.5-14.5); Segmented Neutrophils % 72.8 %
[2017-11-06 06:20] LABS: BUN/Creatinine Ratio 17 (6-26); Blood Urea Nitrogen 17 mg/dL (8-23); Calcium 8.4 mg/dL (8.6-10.3); Carbon Dioxide 27 mEq/L (23-29); Chloride 106 mEq/L (98-107); Glucose 107 mg/dL (70-105); Osmolality,Calculated 286 (280-300); Sodium 137 mEq/L (136-145); eGFR For African Americans > 60 (> 60); eGFR For Non-African Americans > 60 (> 60)
[2017-11-06] MEDS: Insulin LISPRO 300 UNITS/3 ML VIAL SQ SCH ×2 (08:44→12:09)
[2017-11-06] MEDS ORDERED: Ascorbic Acid 500 MG TABLET PO SCH (09:00)
[2017-11-06] MEDS ORDERED: Lisinopril 20 MG TABLET PO SCH (09:00)
[2017-11-06] MEDS ORDERED: Aspirin Enteric Coated 81 MG Tablet PO SCH (09:00)
[2017-11-06] MEDS: Budesonide/Formoterol 160/4.5 MDI IH SCH (09:57)
[2017-11-06 10:05] VITALS: BP 115/61
--- NOTE | 2017-11-06 12:22 | Internal Med History&Physical ---
Date of Encounter: 11/06/17 Time of Encounter: 11:50 Assessment and Plan (1) Facial cellulitis Current visit: Yes Status: Acute He received IV clindamycin and Rocephin in the emergency room. (2) Anemia Current visit: No Status: Acute Workup 10/04/2017 showed findings consistent with iron deficiency and B12 deficiency. Results were pending at time of his September 2017 discharge. He is uncertain what treatment he has received for these from his PCP. Qualifiers: Anemia type: unspecified type Qualified Code(s): D64.9 - Anemia, unspecified Internal Medicine - H&P: HPI Chief complaint: Facial cellulitis Admitted From: Emergency Dept Plans for Post Hospital Care: Home History of present illness: Mr. Chavez is a 81 year old male who came to emergency room stating he was not improved after receiving prescription for clindamycin 11/03/2017 at [place] urgent [facility] for facial cellulitis. He was evaluated in emergency room with facial CT showing mild left inferior face and submandibular soft tissue induration possibly representing mild cellulitis. He was admitted to [facility] floor for ongoing care needs. He states he feels significantly improved at present time and wishes to be discharged home. Past Med Surg Social Fam HX - Past Medical History Medical history: non-contributory Psychiatric history: anxiety - Past Surgical History Surgical History: coronary bypass (CABG), other - Social History Smoking Status: Former smoker Smokeless Tobacco Status: No Alcohol use: none Drug use: none - Family History Father Adopted: No Living Status: Hx Family Cardiac Disorders: Yes (heart attack) Internal Medicine - H&P: Meds GuaiFENesin ER [Mucinex] 600 mg PO BID PRN 05/19/15 [History] Simvastatin [Zocor] 40 mg PO QPM 05/19/15 [History] Albuterol Sulfate [Proair Hfa] 2 puff IH PRN PRN 09/29/16 [History] Nitroglycerin [Nitrostat] 0.4 mg SL PRN PRN 09/29/16 [History] Aspirin [Lo-Dose Aspirin EC] 81 mg PO DAILY 02/28/17 [History] Esomeprazole Magnesium [Nexium] 40 mg PO DAILY 02/28/17 [History] Fluticasone/Salmeterol [Advair 500-50 Diskus] 1 puff IH BID 02/28/17 [History] Rivaroxaban [Xarelto] 20 mg PO DAILY 02/28/17 [History] Enalapril Maleate [Vasotec] 40 mg PO DAILY 05/22/17 [History] Ascorbic Acid [Vitamin C] 500 mg PO DAILY #30 tablet 10/04/17 [Rx] Cefuroxime PO [Ceftin] 500 mg PO Q12HR #8 tablet 10/04/17 [Rx] Ferrous Sulfate 325 mg PO DAILY #30 tablet 10/04/17 [Rx] Furosemide [Lasix] 20 mg PO Q48H tablet 10/04/17 [Rx] Lactobacillus [Culturelle] 1 each PO BID #8 cap.sprink 10/04/17 [Rx] Clindamycin HCl [Cleocin HCl] 300 mg PO TID #21 capsule 11/03/17 [Rx] Acetaminophen [Tylenol] 500 mg PO Q6HR 11/05/17 [History] 3 Allergy/AdvReac Type Severity Reaction Status Date / Time naproxen Allergy Swelling Verified 11/03/17 19:20 of Lip/Tongue/Throat aclidinium AdvReac Dizziness Verified 11/03/17 19:20 [From Tudorza Pressair] amlodipine AdvReac Nausea Verified 11/03/17 19:20 fluoxetine AdvReac Hallucinati Verified 11/03/17 19:20 ng lorazepam [From Ativan] AdvReac Nausea Verified 11/03/17 19:20 All Systems PM: A 10-system review of systems was performed and is negative for pertinent findings except as documented above in the HPI. Review of systems: Review of systems from his September 2017 [facility] hospitalization were reviewed and revised as below. 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 He had a heart cath approximately December 2008 at [place] with results unremarkable. He thinks he had another stress test approximately 2011 without further intervention recommended. He does not have known heart failure, DVT, or pulmonary embolus. An echocardiogram 09/25/2015 showed LVEF 60%, E/A ratio of 0.6, and no significant valvular abnormality. The interventricular septum and posterior wall thickness measurements were elevated at 1.10 cm each. 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 Respiratory: He smoked from age [age] up to 1 pack per day. He had PFTs 2015 which showed FVC 59% predicted, FEV1/FVC 66%, MVV 45%, and DLCO corrected 72%. There was minimal change postbronchodilator. The RV was elevated at 142% predicted. He has hypoxemia and wears oxygen 24/7. GI: He denies trouble with his liver gallbladder or exocrine pancreas. He does have GERD. : no history of hematuria, dysuria, kidney stones, or BPH. He denies chronic kidney disease Neurologic: No history of large distribution strokes or seizures. Endocrine: He has no known diabetes or thyroid disease but does have hyperlipidemia. Hematology/oncology: No history of internal malignancies or blood disorders. Anemia testing 10/04/2017 showed iron 33, transferrin saturation 13%, transferrin 183, ferritin 67, B12 157, and folate 13.2. Psychiatric: He has depression but no significant anxiety or other mental health issues. [place] skeletal: he has DJD but no known gout or osteoporosis. - Constitutional Vitals: Temp Pulse Resp BP Pulse Ox 98.1 F 67 18 115/61 98 11/06/17 10:03 11/06/17 10:03 11/06/17 10:03 11/06/17 10:03 11/06/17 10:03 Exam: Gen.: He is a well-developed well-nourished male sitting in chair at bedside appears in no acute distress HEENT: Head is atraumatic. There is slight asymmetry with the left face and submandibular area minimally larger than the right. Eyes: EOMI. There is no scleral icterus. Mouth: Mucosa is moist. Neck: Supple and nontender. There is no thyromegaly. There is a left submandibular nodule (?) that possibly represents enlarged lymph node but detailed evaluation is difficult because of patient's body habitus. Heart: Regular without murmurs gallops or ectopics Lungs: No wheezes or crackles are heard. Abdomen: Soft and nontender. Exam is limited because he is in the seated position. Extremities: He has trace to 1+ edema bilaterally. Dorsalis pedis and posterior tibial pulses are trace palpable. His feet are warm to touch. He has minimal DJD changes of his hands. Neurologic: Mental status: He is talkative and a good historian. Cranial nerves : Smile is symmetric. Forehead wrinkles bilaterally. Tongue protrudes midline. EOMI. Motor: There is no pronator drift. Cerebellar: Finger to nose is intact bilaterally. Skin: Warm and dry Internal Med - H&P Results - Labs CBC & Chem 7: 11/06/17 04:40 11/06/17 04:40 Labs: Short CBC 11/06/17 Range/Units 04:40 WBC 7.3 (4.3-11.1) K/mcL Hgb 8.9 L (12.9-16.9) g/dL Hct 27.6 L (37.5-50.1) % Plt Count 142 (140-400) K/mcL Neutrophils # 5.3 (1.6-8.9) K/mcL BMP 11/06/17 04:40 Sodium 137 Potassium 4.0 Chloride 106 Carbon Dioxide 27 BUN 17 Creatinine 1.01 Glucose 107 H Calcium 8.4 L
--- NOTE | 2017-11-06 12:35 | Discharge Summary ---
Date of Encounter: 11/06/17 Time of Encounter: 11:50 - Discharge Diagnosis (1) Facial cellulitis Priority: Primary Status: Acute (2) Anemia Priority: Secondary Status: Acute Qualifiers: Anemia type: unspecified type Qualified Code(s): D64.9 - Anemia, unspecified - Discharge Medications Prescriptions: Amoxicillin/Clavulanate [Augmentin] 875 mg PO BIDWM #8 tablet Lactobacillus [Culturelle] 1 each PO BID #8 cap.sprink Home Medications: GuaiFENesin ER [Mucinex] 600 mg PO BID PRN 05/19/15 [History] Simvastatin [Zocor] 40 mg PO QPM 05/19/15 [History] Albuterol Sulfate [Proair Hfa] 2 puff IH PRN PRN 09/29/16 [History] Nitroglycerin [Nitrostat] 0.4 mg SL PRN PRN 09/29/16 [History] Aspirin [Lo-Dose Aspirin EC] 81 mg PO DAILY 02/28/17 [History] Esomeprazole Magnesium [Nexium] 40 mg PO DAILY 02/28/17 [History] Fluticasone/Salmeterol [Advair 500-50 Diskus] 1 puff IH BID 02/28/17 [History] Rivaroxaban [Xarelto] 20 mg PO DAILY 02/28/17 [History] Enalapril Maleate [Vasotec] 40 mg PO DAILY 05/22/17 [History] Ascorbic Acid [Vitamin C] 500 mg PO DAILY #30 tablet 10/04/17 [Rx] Ferrous Sulfate 325 mg PO DAILY #30 tablet 10/04/17 [Rx] Furosemide [Lasix] 20 mg PO Q48H tablet 10/04/17 [Rx] Acetaminophen [Tylenol] 500 mg PO Q6HR 11/05/17 [History] Amoxicillin/Clavulanate [Augmentin] 875 mg PO BIDWM #8 tablet 11/06/17 [Rx] Lactobacillus [Culturelle] 1 each PO BID #8 cap.sprink 11/06/17 [Rx] Allergies/Adverse Reactions: 3 Allergy/AdvReac Type Severity Reaction Status Date / Time naproxen Allergy Swelling Verified 11/03/17 19:20 of Lip/Tongue/Throat aclidinium AdvReac Dizziness Verified 11/03/17 19:20 [From Tudorza Pressair] amlodipine AdvReac Nausea Verified 11/03/17 19:20 fluoxetine AdvReac Hallucinati Verified 11/03/17 19:20 ng lorazepam [From Ativan] AdvReac Nausea Verified 11/03/17 19:20 Date of admission: 11/05/17 19:01 Primary care physician: Kings Moran MD - Patient Status Disposition: Home, Self-Care Condition: Good Functional capacity at discharge: uses cane/walker Overall status at discharge: patient is progressing back to baseline - Discharge Instructions Follow Up With: Kings Moran MD [Primary Care Provider] - - Diet and Activity Activity: resume usual activities as tolerated Diet: advance to your usual diet Hospital course: Mr. Chavez is a 81 year old male who came to emergency room stating he was not improved after receiving prescription for clindamycin 11/03/2017 at [facility] for facial cellulitis. He was evaluated in emergency room with facial CT showing mild left inferior face and submandibular soft tissue induration possibly representing mild cellulitis. He was admitted to [facility] for ongoing care needs. Initial orders were written by the emergency room physician. I saw him on November 04 and performed the history physical and discharge. He received IV clindamycin and Rocephin in the emergency room. By the time I saw him he stated he felt near his baseline and wished to be discharged home. I felt this was reasonable. He will be given Augmentin 875 mg twice a day with lactobacillus for 4 days at discharge. He will follow with his PCP Dr. Kings Moran within 1 week. He can discuss with Dr. Moran treatment for his anemia if this has not been done. - Time Spent with Patient Total time spent providing and/or coordinating discharge services: - Constitutional Vitals: Temp Pulse Resp BP Pulse Ox 98.1 F 67 18 115/61 98 11/06/17 10:03 11/06/17 10:03 11/06/17 10:03 11/06/17 10:03 11/06/17 10:03
[2017-11-06] MEDS ORDERED: *HR* Rivaroxaban 10 MG TABLET PO SCH (17:00)
== END 2017-11-06 13:09 | disposition home or self-care (01) ==
LOC: EMEROOPIK 15:29 → INPPIK 15:29
PROVIDERS: ADMIT Internal Medicine; ATTEND Internal Medicine

== ENCOUNTER 2019-02-18 13:01 | Observation (INO) ==
--- NOTE | 2019-02-18 13:10 | Emergency Department Note ---
Disposition Clinical Impression: Lightheadedness, Sinusitis, Pneumonia Disposition: Admitted As Inpatient Condition: Good Referrals: Kings Moran MD [Primary Care Provider] - Forms: ED Satisfaction Letter Time of Disposition: 14:44 Dizziness HPI - General Chief Complaint: ED Dizziness Stated Complaint: Dizziness Time Seen by Provider: 02/18/19 13:10 Source: patient, family Mode of arrival: ambulatory Limitations: no limitations Nursing Notes Reviewed: Yes Vital Signs Reviewed: Yes - History of Present Illness HPI Narrative: 83-year-old male presents today with lightheadedness and feeling "dizzy" for the last 3 or 4 days. Family is concerned he might have an ear infection but he was your doctor last week. He has had ongoing problems with lightheadedness in the past but is never been told he had vertigo. No fevers no chills. He does competitive headache. No chest pain no shortness of breath no abdominal pain. Patient states that he does not think he drinks enough water. Family is concerned because he stopped taking his water pills recently and stop taking his potassium and they were concerned this may be affecting him. Pt Subjective Complaint: dizziness - Related Data Home Medications Medication Instructions Recorded Confirmed GuaiFENesin ER [Mucinex] 600 mg PO BID PRN 05/19/15 12/26/18 Albuterol Sulfate [Proair Hfa] 2 puff IH Q4H PRN 09/29/16 12/26/18 Nitroglycerin [Nitrostat] 0.4 mg SL Q5M PRN 09/29/16 12/26/18 Aspirin [Lo-Dose Aspirin EC] 81 mg PO 02/28/17 12/31/17 Fluticasone/Salmeterol [Advair 1 puff IH BID 02/28/17 12/26/18 500-50 Diskus] Enalapril Maleate [Vasotec] 40 mg PO DAILY 05/22/17 12/26/18 Albuterol Neb [Proventil Neb] 2.5 mg IH Q4H PRN 01/10/18 12/26/18 Bumetanide [Bumex] 1 mg PO Q48H 01/10/18 12/26/18 Simvastatin [Zocor] 20 mg PO HS 01/10/18 12/26/18 Omeprazole [PriLOSEC] 40 mg PO DAILY 12/26/18 12/26/18 Potassium Chloride 10 meq PO BID 12/26/18 12/26/18 Umeclidinium [place] [Incruse 62.5 mcg IH DAILY 12/26/18 12/26/18 Ellipta] Previous Rx's Medication Instructions Recorded Sennosides/Docusate Sodium [Senna 1 each PO DAILY PRN tablet 12/06/17 Plus] Metoprolol [Lopressor] 12.5 mg PO BID #30 tablet 01/18/18 Allergies Allergy/AdvReac Type Severity Reaction Status Date / Time naproxen Allergy Swelling Verified 10/15/18 14:50 of Lip/Tongue/Throat aclidinium AdvReac Dizziness Verified 10/15/18 14:50 [From Tudorza Pressair] amlodipine AdvReac Nausea Verified 10/15/18 14:50 fluoxetine AdvReac Hallucinati Verified 10/15/18 14:50 ng lorazepam [From Ativan] AdvReac Nausea Verified 10/15/18 14:50 Review of Systems: All other systems are negative except as noted/marked Chart generated with voice recognition software Nursing notes reviewed Old records reviewed Past Medical History - Past Medical History Attestation: Yes The following information was validated with the patient. Source: patient, old records reviewed, nursing notes reviewed Medical history: Reports: atrial fibrillation, COPD, coronary artery disease, GI bleed, hyperlipidemia, hypertension, myocardial infarction Surgical history: Reports: coronary bypass (CABG), pacemaker/AICD, other Psychiatric history: Reports: anxiety - Social History Smoking Status: Former smoker Smokeless Tobacco Status: No Alcohol use: Reports: none Drug use: Reports: none Physical Exam - General Limitations: no limitations General appearance: alert, in no apparent distress - Head Head exam: atraumatic, normocephalic, normal inspection - Eye Eye exam: Present: normal appearance, PERRL, EOMI, nystagmus, other (Nystagmus causes symptoms) - ENT ENT exam: normal exam, normal oropharynx, mucous membranes moist - Neck Neck exam: Present: normal inspection, full ROM, trachea midline - Chest Chest inspection: Present: normal inspection, symmetric chest wall rise - Respiratory Respiratory exam: Present: normal lung sounds bilaterally - Cardiovascular Cardiovascular exam: Present: regular rate, normal rhythm, normal heart sounds - Abdominal Exam Abdominal exam: Present: soft, Non-Tender, normal bowel sounds. Absent: tenderness, distention, guarding, rebound, rigidity - Extremities Exam Extremities exam: Present: normal inspection, full ROM, normal capillary refill. Absent: tenderness, pedal edema - Back Exam Back exam: Present: normal inspection, full ROM - Neurological Exam Neurological exam: Present: alert, oriented X3, CN II-XII intact, normal gait - Psychiatric Psychiatric exam: Present: normal affect, normal mood - Skin Skin exam: Present: warm, dry, intact, normal color Course Vital Signs Temperature 97.8 F 02/18/19 13:02 Pulse Rate 60 02/18/19 13:02 Respiratory Rate 18 02/18/19 13:02 Blood Pressure 153/77 02/18/19 13:02 O2 Sat by Pulse Oximetry 96 02/18/19 13:02 Temperature 97.8 F 02/18/19 13:02 Pulse Rate 62 02/18/19 13:14 Respiratory Rate 18 02/18/19 13:02 Blood Pressure 148/63 02/18/19 13:14 O2 Sat by Pulse Oximetry 98 02/18/19 13:02 Oxygen Delivery Oxygen Delivery Nasal Cannula Dizziness - MDM Narrative Medical decision making narrative: 83-year-old male who presents today with lightheadedness. Appears he may have a pneumonia although patient does not have shortness of breath this time. I did order a noncontrast CT to further evaluate this which she will obtain while he is on his way to being admitted. Given a so unsteady even after the meclizine and do not think that he should go home. He does have some sinusitis a while. To try to cover the sinusitis and the pneumonia started on Zosyn here in the department. I think he would benefit from being observed overnight and monitored to make sure that things are improving. Patient's comfortable with this plan. He spoke with Dr. Smith who agreed. - Medical Records Medical records reviewed: Yes I reviewed the patient's medical records. - Lab Data Lab results reviewed: Yes I reviewed the patient's lab results. Result diagrams: 02/18/19 14:02 02/18/19 14:02 Lab Results 02/18/19 02/18/19 02/18/19 Range/Units 14:02 14:02 14:02 WBC 8.7 (4.3-11.1) K/mcL RBC 3.89 L (4.19-5.50) M/mcL Hgb 11.8 L (12.9-16.9) g/dL Hct 36.5 L (37.5-50.1) % MCV 93.8 (83.0-100.0) fL MCH 30.3 (28.0-33.3) pg MCHC 32.3 (31.6-35.5) g/dL RDW 13.4 (11.5-14.5) % Plt Count 135 L (140-400) K/mcL MPV 12.9 H (9.4-12.4) fL Immature Gran % 0.5 (0-4) % Seg Neutrophils % 68.3 % Lymphocytes % 22.8 % Monocytes % 6.4 % Eosinophils % 1.3 % Basophils % 0.7 % Neutrophils # 6.0 (1.6-8.9) K/mcL Lymphocytes # 2.0 (0.6-4.6) K/mcL Monocytes # 0.6 (0.0-1.3) K/mcL Eosinophils # 0.1 (0.0-0.6) K/mcL Basophils # 0.1 (0.0-0.2) K/mcL PT 13.4 H (9.4-12.1) Seconds INR 1.2 Sodium 141 (136-145) mEq/L Potassium 4.1 (3.5-5.1) mEq/L Chloride 106 (98-107) mEq/L Carbon Dioxide 28 (23-29) mEq/L BUN 24 H (8-23) mg/dL Creatinine 1.22 (0.70-1.30) mg/dL Est GFR ( Amer) > 60 (> 60) Est GFR (Non-Af Amer) 57 L (> 60) BUN/Creatinine Ratio 20 (6-26) Glucose 126 H (70-105) mg/dL Calculated Osmolality 298 (280-300) Calcium 9.1 (8.6-10.3) mg/dL Magnesium 1.9 (1.6-2.6) mg/dL Troponin I < 0.03 (< 0.04) ng/mL - Radiology Data Radiology results reviewed: Yes I reviewed the patient's radiology results. TECHNIQUE: CT of the head was performed without the administration of intravenous contrast. Dose modulation, iterative reconstruction, and/or weight based adjustment of the mA/kV was utilized to reduce the radiation dose to as low as reasonably achievable. COMPARISON: Head CT 05/04/2016 HISTORY: ORDERING SYSTEM PROVIDED HISTORY: dizziness Dizziness for 1 week. Initial evaluation. FINDINGS: BRAIN/VENTRICLES: No masses nor acute intracranial hemorrhage. Intact demarco/white matter differentiation without findings of acute ischemia. No mass effect nor midline shift. Patent basilar cisterns and foramen magnum. No hydrocephalus. Age-appropriate mild diffuse atrophy. Moderate subcortical, deep, and periventricular white matter hypodensities likely due to chronic small vessel ischemia. ORBITS: Visualized portions appear normal without acute abnormality. SINUSES: Partial inclusion of an air-fluid level and at least minimal mucosal thickening in the left maxillary sinus. Fluid and/or mucosal thickening in adjacent left ethmoid sinuses. Minimal mucosal thickening in the left sphenoid sinus. Normally pneumatized and aerated mastoid air cells and middle ears. SOFT TISSUES/SKULL: No acute soft tissue abnormality. Mild atherosclerotic calcifications. No acute fracture. CT/CT head/brain wo con IMPRESSION: 1. No acute intracranial abnormality. 2. At least minimal left-sided paranasal sinus disease. A partially included air-fluid level in the left maxillary sinus could be related to acute sinusitis. D/ / Ángel Martinez MD / Ángel Martinez MD Interpreting Provider: Ángel Martinez MD INATION: SINGLE XRAY VIEW OF THE CHEST 02/18/2019 1:54 pm COMPARISON: 12/26/2018 HISTORY: ORDERING SYSTEM PROVIDED HISTORY: dizziness FINDINGS: Cardiac silhouette is enlarged. No pneumothorax. No pleural effusion. Subtle nodular opacity peripherally in the right lung base, new. Left-sided cardiac device. Leads appear intact. No acute bony abnormality. XR/XR chest 1V portable IMPRESSION: Subtle nodular opacity in the right lung base which is new and concerning for infection. D/ / Annie Cohen MD / Annie Cohen MD Interpreting Provider: Annie Cohen MD - EKG Data EKG attestation: Yes I reviewed and interpreted this EKG. EKG results narrative: EKG interpreted by myself as a sinus rhythm with a rate of [address] elevation does have a prolonged WA interval of 237
[2019-02-18 14:12] LABS: Basophils # 0.1 K/mcL (0.0-0.2); Basophils % 0.7 %; Eosinophils # 0.1 K/mcL (0.0-0.6); Eosinophils % 1.3 %; Hematocrit 36.5 % (37.5-50.1); Hemoglobin 11.8 g/dL (12.9-16.9); Immature Granulocytes % 0.5 % (0-4); Lymphocytes % 22.8 %; Mean Corpuscular HGB Conc 32.3 g/dL (31.6-35.5); Mean Corpuscular Hemoglobin 30.3 pg (28.0-33.3); Mean Corpuscular Volume 93.8 fL (83.0-100.0); Mean Platelet Volume 12.9 fL (9.4-12.4); Monocytes # 0.6 K/mcL (0.0-1.3); Monocytes % 6.4 %; Platelet Count 135 K/mcL (140-400); Red Blood Count 3.89 M/mcL (4.19-5.50); Red Cell Distribution Width 13.4 % (11.5-14.5); Segmented Neutrophils % 68.3 %
[2019-02-18 14:19] LABS: INR 1.2; Prothrombin Time 13.4 Seconds (9.4-12.1)
[2019-02-18] MEDS ORDERED: Piperacillin/Tazobactam 3.375 GM in 0.9 % Sodium Chloride Mini Bag 100 ML IVPB ONE (14:25)
[2019-02-18 14:28] LABS: BUN/Creatinine Ratio 20 (6-26); Blood Urea Nitrogen 24 mg/dL (8-23); Calcium 9.1 mg/dL (8.6-10.3); Carbon Dioxide 28 mEq/L (23-29); Chloride 106 mEq/L (98-107); Glucose 126 mg/dL (70-105); Magnesium 1.9 mg/dL (1.6-2.6); Osmolality,Calculated 298 (280-300); Potassium 4.1 mEq/L (3.5-5.1); Sodium 141 mEq/L (136-145); eGFR For Non-African Americans 57 (> 60)
[2019-02-18 14:31] LABS: Troponin I < 0.03 ng/mL (< 0.04)
[2019-02-18] MEDS ORDERED: Albuterol 2.5 MG/3 ML NEBULIZER IH PRN (16:51)
[2019-02-18] MEDS ORDERED: Ondansetron 4 MG/2 ML VIAL IVP PRN (16:51)
[2019-02-18] MEDS ORDERED: Bumetanide 1 MG TABLET PO SCH (16:51)
[2019-02-18] MEDS ORDERED: MOM Conc 10 ML UD.LIQ PO PRN (16:51)
[2019-02-18] MEDS ORDERED: Naloxone 0.4 MG/ML INJ IVP PRN (16:51)
[2019-02-18] MEDS ORDERED: Acetaminophen 325 MG TABLET PO PRN (16:51)
[2019-02-18] MEDS ORDERED: Nitroglycerin 0.4 MG TAB.SUBL SL PRN (16:51)
[2019-02-18] MEDS ORDERED: Mag Hydrox/Al Hydrox/Simeth 30 ML UDC PO PRN (16:51)
[2019-02-18] MEDS ORDERED: *HR* HYDROcodone/Acet 5/325 mg TABLET PO PRN (16:51)
[2019-02-18] MEDS: Budesonide/Formoterol 160/4.5 1 PUFF INH IH SCH (22:52)
[2019-02-19 06:07] LABS: Basophils # 0.1 K/mcL (0.0-0.2); Basophils % 0.8 %; Eosinophils # 0.2 K/mcL (0.0-0.6); Eosinophils % 2.1 %; Hematocrit 36.1 % (37.5-50.1); Immature Granulocytes % 0.3 % (0-4); Lymphocytes # 2.1 K/mcL (0.6-4.6); Lymphocytes % 27.9 %; Mean Corpuscular HGB Conc 33.2 g/dL (31.6-35.5); Mean Corpuscular Hemoglobin 30.8 pg (28.0-33.3); Mean Corpuscular Volume 92.6 fL (83.0-100.0); Monocytes # 0.5 K/mcL (0.0-1.3); Monocytes % 6.7 %; Neutrophils # 4.7 K/mcL (1.6-8.9); Platelet Count 141 K/mcL (140-400); Red Cell Distribution Width 13.2 % (11.5-14.5); Segmented Neutrophils % 62.2 %
[2019-02-19 06:33] LABS: BUN/Creatinine Ratio 18 (6-26); Blood Urea Nitrogen 21 mg/dL (8-23); Calcium 9.1 mg/dL (8.6-10.3); Carbon Dioxide 32 mEq/L (23-29); Chloride 103 mEq/L (98-107); Glucose 111 mg/dL (70-105); Magnesium 1.9 mg/dL (1.6-2.6); Osmolality,Calculated 296 (280-300); Potassium 3.7 mEq/L (3.5-5.1); Sodium 141 mEq/L (136-145); eGFR For Non-African Americans 59 (> 60)
[2019-02-19] MEDS ORDERED: Aspirin Enteric Coated 81 MG Tablet PO SCH (09:00)
[2019-02-19] MEDS ORDERED: Lisinopril 20 MG TABLET PO SCH (09:00)
[2019-02-19] MEDS ORDERED: INCRUSE ELLIPTA IH SCH (10:00)
[2019-02-19] MEDS: Budesonide/Formoterol 160/4.5 1 PUFF INH IH SCH (10:20)
[2019-02-19 10:52] VITALS: BP 124/71
--- NOTE | 2019-02-19 12:18 | Internal Med History&Physical ---
Date of Encounter: 02/19/19 Time of Encounter: 11:30 Assessment and Plan (1) Lightheadedness Current visit: Yes Status: Acute I explained his symptoms were suggestive of orthostatic hypotension. His daughter reports blood pressure readings range 130 to 170s systolic generally. I reviewed with patient and daughter precautions such as rising slowly and standing for a few seconds before attempting ambulation. I explained that reducing the antihypertension medication dose to lessen the orthostatic symptoms could result in higher resting blood pressure. Because of azotemia and BPH symptoms enalapril will be reduced 20 mg daily and Cardura 1 mg at bedtime will be started. Dr. Moran can further decrease/discontinue enalapril to see if azotemia lessens and up titrate Cardura. He will continue to use his walker for ambulation. (2) Sinusitis Current visit: Yes Status: Acute He was given a dose of Zosyn in emergency room. He does not clinically appear to have significant sinus infection that requires antibiotics at this time. His PCP can further evaluate. I recommended he use OTC oxymetazoline nasal spray as directed. 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 Decrease enalapril to 20 mg daily and start Cardura 1 mg at bedtime with further titration by Dr. Moran. Qualifiers: Hypertension type: essential hypertension Qualified Code(s): I10 - Essential (primary) hypertension (4) Anemia Current visit: No Status: Chronic Anemia testing was not ordered since he is being discharged. Dr. Moran can order testing to follow up on previously low B12 and iron levels. Qualifiers: Anemia type: other cause Other causes of anemia: chronic disease, other Qualified Code(s): D63.8 - Anemia in other chronic diseases classified elsewhere (5) Chronic respiratory failure with hypoxia Current visit: No Status: Chronic Continue oxygen and present inhaler Rx. (6) CKD (chronic kidney disease) stage 3, GFR 30-59 ml/min Current visit: Yes Status: Chronic Initiate reduction of enalapril as above. Dr. Moran can continue to titrate down/discontinue as needed and monitor renal indices. (7) Afib Current visit: No Status: Chronic Dr. Moran can reassess appropriateness of restarting OAC. Qualifiers: Atrial fibrillation type: paroxysmal Qualified Code(s): I48.0 - Paroxysmal atrial fibrillation Internal Medicine - H&P: HPI Chief complaint: Lightheaded Admitted From: Emergency Dept Plans for Post Hospital Care: Home History of present illness: Mr. Chavez is a 83 year old male who came to emergency room stating he had worsening lightheadedness over the preceding days. He reports onset approximately 2 years ago of non-vertigo "dizziness" most prominent on arising from a seated position. He has had no recent falls and uses a wheeled walker for ambulation. He felt the lightheadedness was worsening over the past few days so came to emergency room. Head CT showed at least minimal left-sided paranasal sinus with partial inclusion of air-fluid level in the left maxillary sinus. He was admitted to [facility] for ongoing care needs. He states he feels stable at the present time and wishes to be discharged home. Neurologic history is negative for history of large distribution strokes or seizures. Past Med Surg Social Fam HX - Past Medical History Medical history: atrial fibrillation, COPD, coronary artery disease, GI bleed, hyperlipidemia, hypertension, myocardial infarction Additional medical history: staph infection 2007 Psychiatric history: anxiety - Past Surgical History Surgical History: coronary bypass (CABG), pacemaker/AICD, other Additional surgical history: 2 open heart surgeries @ [place] - Social History Smoking Status: Former smoker Smokeless Tobacco Status: No Alcohol use: none Drug use: none - Family History Father Adopted: No Living Status: Hx Family Cardiac Disorders: Yes (heart attack) Internal Medicine - H&P: Meds GuaiFENesin ER [Mucinex] 600 mg PO BID PRN 05/19/15 [History] Albuterol Sulfate [Proair Hfa] 2 puff IH Q4H PRN 09/29/16 [History] Nitroglycerin [Nitrostat] 0.4 mg SL Q5M PRN 09/29/16 [History] Aspirin [Lo-Dose Aspirin EC] 81 mg PO DAILY 02/28/17 [History] Fluticasone/Salmeterol [Advair 500-50 Diskus] 1 puff IH BID 02/28/17 [History] Enalapril Maleate [Vasotec] 40 mg PO DAILY 05/22/17 [History] Sennosides/Docusate Sodium [Senna Plus] 1 each PO DAILY PRN tablet 12/06/17 [Rx] Albuterol Neb [Proventil Neb] 2.5 mg IH Q4H PRN 01/10/18 [History] Bumetanide [Bumex] 1 mg PO Q48H 01/10/18 [History] Simvastatin [Zocor] 20 mg PO HS 01/10/18 [History] Metoprolol [Lopressor] 12.5 mg PO BID #30 tablet 01/18/18 [Rx] Omeprazole [PriLOSEC] 40 mg PO DAILY 12/26/18 [History] Potassium Chloride 10 meq PO BID 12/26/18 [History] Umeclidinium [place] [Incruse Ellipta] 62.5 mcg IH DAILY 12/26/18 [History] Allergy/AdvReac Type Severity Reaction Status Date / Time naproxen Allergy Swelling Verified 10/15/18 14:50 of Lip/Tongue/Throat aclidinium AdvReac Dizziness Verified 10/15/18 14:50 [From Tudorza Pressair] amlodipine AdvReac Nausea Verified 10/15/18 14:50 fluoxetine AdvReac Hallucinati Verified 10/15/18 14:50 ng lorazepam [From Ativan] AdvReac Nausea Verified 10/15/18 14:50 All Systems PM: A 10-system review of systems was performed and is negative for pertinent findings except as documented above in the HPI. Review of systems: Review of systems from his January 2018 [facility] hospitalization were reviewed and revised as below. General: His weight has decreased from 95.254 kg at the May 2015 hospitalization to 90.718 kg on admission now Cardiovascular: He has hypertension and known ASHD status post 3 vessel CABG September 2006 in [place]. He had a heart cath approximately December 2008 at [place] with results unremarkable. He thinks he had another stress test approximately 2011 without further intervention recommended. He does not have known heart failure, DVT, or pulmonary embolus. An echocardiogram 01/12/2018 showed LVEF 60%, E/A ratio of 1.1, and no significant valvular abnormality. The interventricular septum and posterior wall thickness measurements were elevated at 1.50 cm and 1.35 cm respectively. 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 He has history of atrial fibrillation and was on Xarelto until November 2017 when it was discontinued due to GI bleed. Respiratory: He smoked from age [age] up to 1 pack per day. He had PFTs 10/20/2015 which showed FVC 59% predicted, FEV1/FVC 66%, MVV 45%, and DLCO corrected 72%. There was minimal change postbronchodilator. The RV was elevated at 142% predicted. He has hypoxemia and wears oxygen 24/7. GI: He denies trouble with his liver gallbladder or exocrine pancreas. He does have GERD. He was hospitalized November 2017 at [facility] with GI bleed. Xarelto was discontinued. : No history of hematuria, dysuria, or kidney stones. He has frequent small volume urination. He was unaware he has chronic kidney disease stage 2-3. Neurologic: As per history of present illness Endocrine: He has no known diabetes but does have hyperlipidemia. TSH was minimally elevated at 5.775 on 06/14/2018 Hematology/oncology: No history of internal malignancies or blood disorders. Anemia testing 12/08/2017 showed iron 27, transferrin saturation 10%, transferrin 202, ferritin 27 and folate 11.4. B12 level was low at 231 on 09/07/2018. Psychiatric: He has depression but no significant anxiety or other mental health issues. [place] skeletal: he has DJD but no known gout or osteoporosis. - Constitutional Vitals: Temp Pulse Resp BP Pulse Ox 97.9 F 60 18 124/71 99 02/19/19 10:00 02/19/19 10:00 02/19/19 10:21 02/19/19 10:00 02/19/19 10:21 Exam: Gen.: He is a well-developed well-nourished male sitting in a chair at bedside who appears in no acute distress HEENT: Head is atraumatic and normocephalic. Eyes: EOMI. There is no scleral icterus. Mouth: Mucosa is moist. Neck: Supple and nontender. There is no thyromegaly or adenopathy noted. Heart: Regular (pacer) without murmurs gallops or ectopics Lungs: No wheezes or crackles are heard. Abdomen: Soft. He complains of minimal tenderness on palpation. Exam is limited because he is in the seated position. Extremities: There is trace edema of the left leg and 0 to trace edema of the right leg. Dorsalis pedis and posterior tibial pulses are trace to 1+ palpable bilaterally. He has minimal DJD changes of his hands. Neurologic: Mental status: He is talkative and able to answer questions appropriately. Cranial nerves: Smile is symmetric. Forehead wrinkles bilaterally. Tongue protrudes midline. EOMI. Motor: There is no pronator drift. Cerebellar: Finger to nose is intact bilaterally. Skin: Warm and dry Internal Med - H&P Results - Labs CBC & Chem 7: 02/19/19 05:25 02/19/19 05:25 Labs: Short CBC 02/18/19 02/19/19 Range/Units 14:02 05:25 WBC 8.7 7.6 (4.3-11.1) K/mcL Hgb 11.8 L 12.0 L (12.9-16.9) g/dL Hct 36.5 L 36.1 L (37.5-50.1) % Plt Count 135 L 141 (140-400) K/mcL Neutrophils # 6.0 4.7 (1.6-8.9) K/mcL BMP 02/18/19 02/19/19 14:02 05:25 Sodium 141 141 Potassium 4.1 3.7 Chloride 106 103 Carbon Dioxide 28 32 H BUN 24 H 21 Creatinine 1.22 1.18 Glucose 126 H 111 H Calcium 9.1 9.1 Cardiac Enzymes 02/18/19 Range/Units 14:02 Troponin I < 0.03 (< 0.04) ng/mL - Impressions ITS Impressions Chest X-Ray 02/18/19 13:25 IMPRESSION: Subtle nodular opacity in the right lung base which is new and concerning for infection. D/ / Annie Cohen MD / Annie Cohen MD Interpreting Provider: Annie Cohen MD Head CT 02/18/19 13:25 IMPRESSION: 1. No acute intracranial abnormality. 2. At least minimal left-sided paranasal sinus disease. A partially included air-fluid level in the left maxillary sinus could be related to acute sinusitis. D/ / Ángel Martinez MD / Ángel Martinez MD Interpreting Provider: Ángel Martinez MD Chest CT 02/18/19 14:32 IMPRESSION: 1. No acute findings in the chest. 2. No significant change in a 1.8 cm x 1.7 cm heterogeneous nodular opacity in the right lower lobe, suggesting scarring. Lack of growth suggests against an indolent neoplasm. 3. Multifocal scarring in the mid to basilar left lung. D/ / Ángel Martinez MD / Ángel Martinez MD Interpreting Provider: Ángel Martinez MD
--- NOTE | 2019-02-19 12:44 | Discharge Summary ---
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 (3) Hypertension Priority: Secondary Status: Chronic Qualifiers: Hypertension type: essential hypertension Qualified Code(s): I10 - Essential (primary) hypertension (4) Anemia Priority: Secondary Status: Chronic Qualifiers: Anemia type: other cause Other causes of anemia: chronic disease, other Qualified Code(s): D63.8 - Anemia in other chronic diseases classified elsewhere (5) Chronic respiratory failure with hypoxia Priority: Secondary Status: Chronic (6) CKD (chronic kidney disease) stage 3, GFR 30-59 ml/min Priority: Secondary Status: Chronic (7) Afib Priority: Secondary Status: Chronic Qualifiers: Atrial fibrillation type: paroxysmal Qualified Code(s): I48.0 - Paroxysmal atrial fibrillation Hospital course: Mr. Chavez is a 83 year old male who came to emergency room stating he had worsening lightheadedness over the preceding days. He reports onset approximately 2 years ago of non-vertigo "dizziness" most prominent on arising from a seated position. He has had no recent falls and uses a wheeled walker for ambulation. He felt the lightheadedness was worsening over the past few days so came to emergency room. Head CT showed at least minimal left-sided paranasal sinus with partial inclusion of air-fluid level in the left maxillary sinus. He was admitted to [facility] for ongoing care needs. Initial orders were written by emergency room physician. I saw him on February 19 and performed the history and physical and discharge. When I saw him he stated he felt stable for discharge home which I felt was reasonable. I reviewed with patient and daughter precautions to avoid orthostatic symptoms upon arising. Because of azotemia and BPH symptoms I reduced enalapril 20 mg daily and started Cardura [address] Moran can continue to titrate these medications. Antibiotics will not be continued for air-fluid level seen on head CT scan since patient did not appear to have significant acute sinusitis symptoms present. Dr. Moran can monitor. I encouraged the patient to use OTC oxymetazoline nasal spray for symptomatic relief of nasal congestion. Dr. Moran can order anemia testing to follow-up on previously seen iron and B12 deficiency. He can also determine if restarting OAC is appropriate for paroxysmal atrial fibrillation. He will follow with Dr. Moran within 1 week. - Time Spent with Patient Total time spent providing and/or coordinating discharge services: - Discharge Medications Prescriptions: New Doxazosin [Cardura] 1 mg PO HS #30 tablet Continued Sennosides/Docusate Sodium [Senna Plus] 1 each PO DAILY PRN tablet PRN Reason: Constipation Simvastatin [Zocor] 20 mg PO HS Bumetanide [Bumex] 1 mg PO Q48H Albuterol Neb [Proventil Neb] 2.5 mg IH Q4H PRN PRN Reason: Shortness Of Breath Metoprolol [Lopressor] 12.5 mg PO BID #30 tablet GuaiFENesin ER [Mucinex] 600 mg PO BID PRN PRN Reason: Congestion Nitroglycerin [Nitrostat] 0.4 mg SL Q5M PRN PRN Reason: Chest Pain Albuterol Sulfate [Proair Hfa] 2 puff IH Q4H PRN PRN Reason: Shortness Of Breath Fluticasone/Salmeterol [Advair 500-50 Diskus] 1 puff IH BID Aspirin [Lo-Dose Aspirin EC] 81 mg PO DAILY Omeprazole [PriLOSEC] 40 mg PO DAILY Potassium Chloride 10 meq PO BID Umeclidinium [place] [Incruse Ellipta] 62.5 mcg IH DAILY Changed Enalapril Maleate [Vasotec] 20 mg PO DAILY #0 Home Medications: GuaiFENesin ER [Mucinex] 600 mg PO BID PRN 05/19/15 [History] Albuterol Sulfate [Proair Hfa] 2 puff IH Q4H PRN 09/29/16 [History] Nitroglycerin [Nitrostat] 0.4 mg SL Q5M PRN 09/29/16 [History] Aspirin [Lo-Dose Aspirin EC] 81 mg PO DAILY 02/28/17 [History] Fluticasone/Salmeterol [Advair 500-50 Diskus] 1 puff IH BID 02/28/17 [History] Sennosides/Docusate Sodium [Senna Plus] 1 each PO DAILY PRN tablet 12/06/17 [Rx] Albuterol Neb [Proventil Neb] 2.5 mg IH Q4H PRN 01/10/18 [History] Bumetanide [Bumex] 1 mg PO Q48H 01/10/18 [History] Simvastatin [Zocor] 20 mg PO HS 01/10/18 [History] Metoprolol [Lopressor] 12.5 mg PO BID #30 tablet 01/18/18 [Rx] Omeprazole [PriLOSEC] 40 mg PO DAILY 12/26/18 [History] Potassium Chloride 10 meq PO BID 12/26/18 [History] Umeclidinium [place] [Incruse Ellipta] 62.5 mcg IH DAILY 12/26/18 [History] Doxazosin [Cardura] 1 mg PO HS #30 tablet 02/19/19 [Rx] Enalapril Maleate [Vasotec] 20 mg PO DAILY #0 02/19/19 [Rx] Allergies/Adverse Reactions: Allergy/AdvReac Type Severity Reaction Status Date / Time naproxen Allergy Swelling Verified 10/15/18 14:50 of Lip/Tongue/Throat aclidinium AdvReac Dizziness Verified 10/15/18 14:50 [From Tudorza Pressair] amlodipine AdvReac Nausea Verified 10/15/18 14:50 fluoxetine AdvReac Hallucinati Verified 10/15/18 14:50 ng lorazepam [From Ativan] AdvReac Nausea Verified 10/15/18 14:50 Date of admission: 02/18/19 14:44 Primary care physician: Kings Moran MD - Constitutional Vitals: Temp Pulse Resp BP Pulse Ox 97.9 F 60 18 124/71 99 02/19/19 10:00 02/19/19 10:00 02/19/19 10:21 02/19/19 10:00 02/19/19 10:21 - Patient Status Disposition: Home, Self-Care Condition: Good - Discharge Instructions Follow Up With: Kings Moran MD [Primary Care Provider] - 1 week - Diet and Activity Activity: resume usual activities as tolerated, wear oxygen at all times Diet: advance to your usual diet
--- NOTE | 2019-02-19 15:20 | Electrocardiograph Report ---
[place] [id number] Test Date: 2019-02-18 Pat Name: Nitin Chavez Department: EDP-16 Room: [facility] Gender: M [employer]: : 1935 Requested By: Fatmata Givens Order Number: [id number] Reading MD: Eric Faustin Measurements Intervals [place] Rate: 62 P: 68 AL: 237 QRS: 69 QRSD: 109 T: -53 QT: 353 QTc: 359 Interpretive Statements Sinus rhythm Low voltage, precordial leads Inferolateral T wave changes Electronically Signed On 02-19-2019 15:18:57 EDT by Eric Faustin
== END 2019-02-19 13:07 | disposition home or self-care (01) ==
LOC: EMEROOPIK 13:01 → INPPIK 13:01
PROVIDERS: ADMIT Internal Medicine; ATTEND Internal Medicine

== ENCOUNTER 2021-05-02 14:32 | Observation (INO) ==
[2021-05-02] MEDS ORDERED: Albuterol 2.5 MG/3 ML NEBULIZER IH ONE (15:00)
[2021-05-02 15:24] LABS: Basophils % 0.6 %; Eosinophils # 0.1 K/mcL (0.0-0.6); Eosinophils % 1.2 %; Hematocrit 29.1 % (37.5-50.1); Hemoglobin 9.3 g/dL (12.9-16.9); Immature Granulocytes % 0.2 % (0-4); Lymphocytes # 1.2 K/mcL (0.6-4.6); Lymphocytes % 18.8 %; Mean Corpuscular Hemoglobin 30.5 pg (28.0-33.3); Mean Corpuscular Volume 95.4 fL (83.0-100.0); Mean Platelet Volume 13.9 fL (9.4-12.4); Monocytes # 0.5 K/mcL (0.0-1.3); Monocytes % 7.1 %; Neutrophils # 4.7 K/mcL (1.6-8.9); Red Blood Count 3.05 M/mcL (4.19-5.50); Red Cell Distribution Width 13.7 % (11.5-14.5); Segmented Neutrophils % 72.1 %; White Blood Count 6.6 K/mcL (4.3-11.1)
[2021-05-02 15:30] LABS: Platelet Count 96 K/mcL (140-400)
[2021-05-02 15:32] LABS: INR 1.3; Prothrombin Time 14.4 Seconds (9.4-12.1)
[2021-05-02 15:34] LABS: Activated Partial Thrombo Time 28.1 Seconds (26.0-36.0)
[2021-05-02 15:43] LABS: Albumin/Globulin Ratio 1.6 (1.1-2.2); Bilirubin,Direct 0.1 mg/dL (0.0-0.2); Bilirubin,Indirect 0.5 mg/dL (0.0-1.0); Bilirubin,Total 0.6 mg/dL (0.3-1.0); Globulin 1.9 g/dL (2.4-3.5); Total Protein 4.9 g/dL (6.4-8.9)
[2021-05-02 15:46] LABS: BUN/Creatinine Ratio 18 (6-26); Blood Urea Nitrogen 21 mg/dL (8-23); Calcium 7.9 mg/dL (8.6-10.3); Carbon Dioxide 28 mEq/L (23-29); Chloride 107 mEq/L (98-107); Glucose 148 mg/dL (70-105); Osmolality,Calculated 296 (280-300); Potassium 4.4 mEq/L (3.5-5.1); Sodium 140 mEq/L (136-145); Troponin I 0.08 ng/mL (< 0.04); eGFR For African Americans > 60 (> 60); eGFR For Non-African Americans 59 (> 60)
[2021-05-02] MEDS ORDERED: Nitroglycerin 0.4 MG TAB.SUBL SL PRN (23:27)
[2021-05-02] MEDS ORDERED: Bumetanide 1 MG TABLET PO SCH (23:27)
[2021-05-03 07:17] LABS: Basophils % 0.5 %; Eosinophils # 0.1 K/mcL (0.0-0.6); Eosinophils % 1.4 %; Hematocrit 35.7 % (37.5-50.1); Hemoglobin 11.5 g/dL (12.9-16.9); Immature Granulocytes % 0.3 % (0-4); Lymphocytes # 1.9 K/mcL (0.6-4.6); Lymphocytes % 21.9 %; Mean Corpuscular HGB Conc 32.2 g/dL (31.6-35.5); Mean Corpuscular Volume 96.2 fL (83.0-100.0); Mean Platelet Volume 13.8 fL (9.4-12.4); Monocytes # 0.6 K/mcL (0.0-1.3); Monocytes % 6.4 %; Platelet Count 117 K/mcL (140-400); Red Blood Count 3.71 M/mcL (4.19-5.50); Red Cell Distribution Width 13.5 % (11.5-14.5); Segmented Neutrophils % 69.5 %; White Blood Count 8.6 K/mcL (4.3-11.1)
[2021-05-03 07:59] LABS: BUN/Creatinine Ratio 14 (6-26); Blood Urea Nitrogen 17 mg/dL (8-23); Calcium 8.7 mg/dL (8.6-10.3); Carbon Dioxide 32 mEq/L (23-29); Chloride 104 mEq/L (98-107); Glucose 124 mg/dL (70-105); Osmolality,Calculated 293 (280-300); Potassium 4.1 mEq/L (3.5-5.1); Sodium 140 mEq/L (136-145); eGFR For African Americans > 60 (> 60); eGFR For Non-African Americans 55 (> 60)
[2021-05-03 08:39] LABS: Platelet Estimate Decreased (Normal)
[2021-05-03] MEDS ORDERED: Aspirin Enteric Coated 81 MG Tablet PO SCH (09:00)
[2021-05-03] MEDS ORDERED: Cyanocobalamin (B-12) 1,000 MCG TABLET PO SCH (09:00)
[2021-05-03] MEDS ORDERED: Ranolazine 500 MG TAB.ER.12H PO SCH (09:00)
[2021-05-03] MEDS ORDERED: Ascorbic Acid 500 MG TABLET PO SCH (09:00)
[2021-05-03] MEDS ORDERED: AZELASTINE HCL OP SCH (09:00)
[2021-05-03] MEDS ORDERED: Isosorbide MONOnitrate (24 HR) 30 MG TAB.ER.24H PO SCH (09:00)
[2021-05-03] MEDS ORDERED: lisinopriL 20 MG TABLET PO SCH (09:00)
[2021-05-03] MEDS ORDERED: Tiotropium 10 INH DOSE IH SCH (10:00)
[2021-05-03] MEDS ORDERED: Budesonide/Formoterol 160/4.5 1 PUFF INH IH SCH (10:00)
[2021-05-03 13:25] VITALS: BP 105/63
[2021-05-03] MEDS ORDERED: Melatonin 3 MG TABLET PO SCH (21:00)
== END 2021-05-03 13:59 | disposition short-term general hospital (02) ==
LOC: EMEROOPIK 14:32 → INPPIK 14:32
PROVIDERS: ADMIT Family Medicine; ATTEND Family Medicine